=== PATIENT | female | born 1950 | race Caucasian/White ===

== ENCOUNTER 2023-11-08 08:55 | Day surgery (SDC) | payer OTHER ==
[~2023-11-08] VITALS: Ht 167.6 cm; Wt 71.7 kg
[~2023-11-08 08:55] MED LIST: MEPERIDINE 100 MG INJ. 100 MG/ML VIAL ONE; MIDAZOLAM HCL 5 MG/5 ML VIAL ONE; fentaNYL CITRATE/PF 100 MCG/2 ML AMP ONE
[2023-11-08] MEDS ORDERED: MIDAZOLAM HCL 5 MG/5 ML VIAL ONE (09:14)
[2023-11-08] MEDS ORDERED: fentaNYL CITRATE/PF 100 MCG/2 ML AMP ONE (09:14)
[2023-11-08] MEDS ORDERED: LIDOCAINE 1%, 20 ML MDV 0 ML ONE (10:01)
[2023-11-08 11:14] VITALS: BP_SYST 120
[2023-11-08] MEDS ORDERED: HYDROmorphone 1 MG/ML INJ. CARTRIDGE ONE (11:35)
[2023-11-08] MEDS: HYDROmorphone 1 MG/ML INJ. CARTRIDGE IVP ONE (11:37)
[2023-11-08] MEDS ORDERED: ACETAMINOPHEN 500 MG TABLET PO ONE (14:30)
== END 2023-11-08 16:00 | disposition home or self-care (01) ==
LOC: SCT 08:55 → SMU 08:56 → SCT 16:00
PROVIDERS: ATTEND Internal Medicine Pulmonary Disease
DX: R91.1 Solitary pulmonary nodule (principal)
CPT/HCPCS: 32408; 71045; 88305; J2250; J3010; J1170; 76376; J2001; J2175